=== PATIENT | female | born 1940 | race Native Hawaiian/Other Pacific Islander ===

== ENCOUNTER 2016-10-09 17:04 | Outpatient (CLI) | payer OTHER ==
[~2016-10-09 17:04] MED LIST: AMLO5TAB PO; ASA LOW DOSE81 MG OR; BENZONATATE200 MG PO; CETIRIZINE10 MG PO; CONZIP100 MG OR; ESTR0.6211 PO; FLUT0.05 NAS; GLIP10TA55 PO; HYZAAR1 TA1 PO; JANUMET1 TA1 PO; KLOR-CON M2020 MEQ OR; LEVAQUIN500 MG OR; LEVO0.0218 PO; LIPITOR20 MG PO; LYRICA50 MG OR; LYRICA75 MG OR; MECLIZINE25 MG PO; METO100T37 PO; MUCINEX600 MG OR; NEXIUM40 M1 PO; TRAZ50TA36 PO; TRAZODONE150 MG PO; TRICOR48 MG PO
[2016-10-09 18:00] LABS: POTASSIUM 4.9 mmol/L (3.6-5.2)
[2016-10-09 18:57] LABS: PLATELET COUNT 93 K/uL (152-353)
== END 2016-10-09 18:04 | disposition home or self-care (01) ==
LOC: LAB 17:04
PROVIDERS: Nurse Practitioner Family
DX: E11.9 Type 2 diabetes mellitus without complications (principal); I10 Essential (primary) hypertension; E03.8 Other specified hypothyroidism
CPT/HCPCS: 80053; 80061; 83036; 84439; 84443; 85027

== ENCOUNTER 2017-02-06 13:18 | Outpatient (CLI) | payer OTHER ==
[2017-02-06 14:29] LABS: PLATELET COUNT 141 K/uL (152-353)
[2017-02-06 15:25] LABS: POTASSIUM 5.2 mmol/L (3.6-5.2)
== END 2017-02-06 19:42 | disposition home or self-care (01) ==
LOC: LAB 13:18
PROVIDERS: Nurse Practitioner Family
DX: I10 Essential (primary) hypertension (principal); E11.9 Type 2 diabetes mellitus without complications
CPT/HCPCS: 80053; 80061; 82306; 82607; 83036; 84439; 84443; 85027

== ENCOUNTER 2021-11-16 12:32 | Outpatient (CLI) | payer OTHER | END 2021-11-16 19:57 | disposition home or self-care (01) | LOC: LAB 12:32 | PROVIDERS: ATTEND Nurse Practitioner Family | DX: N39.0 Urinary tract infection, site not specified (principal) | CPT/HCPCS: 81000 ==

== ENCOUNTER 2022-01-30 08:23 | Outpatient (CLI) | payer OTHER ==
[2022-01-30 09:01] LABS: PLATELET COUNT 79 K/uL (152-353)
== END 2022-01-30 18:48 | disposition home or self-care (01) ==
LOC: LABW 08:23
PROVIDERS: ATTEND Nurse Practitioner Family
DX: I10 Essential (primary) hypertension (principal); G25.81 Restless legs syndrome; E11.9 Type 2 diabetes mellitus without complications; E55.9 Vitamin D deficiency, unspecified; D64.89 Other specified anemias; K74.60 Unspecified cirrhosis of liver; C22.0 Liver cell carcinoma; R82.998 Other abnormal findings in urine
CPT/HCPCS: 36415; 80053; 80061; 81000; 82043; 82570; 82607; 83036; 83735; 84443; 85027; 87077; 87086; 87088; 87186

== ENCOUNTER 2022-03-04 14:42 | Emergency (ER) | payer OTHER ==
[~2022-03-04] VITALS: Ht 152.4 cm; Wt 58.5 kg
[2022-03-04 15:31] LABS: PLATELET COUNT 49 K/uL (152-353)
[2022-03-04 15:39] LABS: POTASSIUM 5.1 mmol/L (3.6-5.2)
[2022-03-04 17:20] VITALS: BP 125/40; TEMP 97.7
== END 2022-03-04 17:21 | disposition home or self-care (01) ==
LOC: ED 14:42
PROVIDERS: Emergency Medicine Emergency Medical Services
DX: N39.0 Urinary tract infection, site not specified (principal)
CPT/HCPCS: 36415; 80053; 81002; 81015; 83735; 84484; 85027; 87086; 87088; 93005; 96360; 96365; 99284; J0696

== ENCOUNTER 2022-05-01 08:26 | Outpatient (CLI) | payer OTHER ==
[2022-05-01 09:21] LABS: PLATELET COUNT 60 K/uL (152-353)
[2022-05-01 09:50] LABS: POTASSIUM 3.9 mmol/L (3.6-5.2)
== END 2022-05-01 19:05 | disposition home or self-care (01) ==
LOC: LABW 08:26 → MAMMO 08:30 → LABW 19:05
PROVIDERS: ATTEND Nurse Practitioner Family
DX: Z12.31 Encounter for screening mammogram for malignant neoplasm of breast (principal); I10 Essential (primary) hypertension; G25.81 Restless legs syndrome; E11.9 Type 2 diabetes mellitus without complications; E55.9 Vitamin D deficiency, unspecified; D64.89 Other specified anemias; K74.60 Unspecified cirrhosis of liver; C22.0 Liver cell carcinoma; Z79.899 Other long term (current) drug therapy
CPT/HCPCS: 36415; 80053; 80061; 81000; 82043; 82306; 82570; 82607; 82728; 82746; 83540; 83550; 84443; 85027; 87077; 87086; 87088; 87186

== ENCOUNTER 2022-05-22 15:07 | Outpatient (CLI) | payer OTHER ==
[2022-05-22 16:51] LABS: PLATELET COUNT 50 K/uL (152-353)
[2022-05-22 17:03] LABS: POTASSIUM 5.3 mmol/L (3.6-5.2)
== END 2022-05-22 23:26 | disposition home or self-care (01) ==
LOC: LABW 15:07
PROVIDERS: ATTEND Nurse Practitioner Family
DX: C22.0 Liver cell carcinoma (principal); D64.89 Other specified anemias; R79.89 Other specified abnormal findings of blood chemistry; R92.8 Other abnormal and inconclusive findings on diagnostic imaging of breast
CPT/HCPCS: 36415; 80053; 82105; 82525; 82607; 82668; 82728; 82746; 83540; 83550; 84439; 84443; 85027

== ENCOUNTER 2022-05-27 07:57 | Outpatient (CLI) | payer OTHER | END 2022-05-27 20:37 | disposition home or self-care (01) | LOC: CT 07:57 | PROVIDERS: ATTEND Internal Medicine Hematology & Oncology | DX: C22.0 Liver cell carcinoma (principal) | CPT/HCPCS: 36415; 82565; 84520 ==

== ENCOUNTER 2022-06-24 08:00 | Outpatient (CLI) | payer OTHER ==
[2022-06-24 08:43] LABS: PLATELET COUNT 54 K/uL (152-353)
[2022-06-24 09:29] LABS: POTASSIUM 4.5 mmol/L (3.6-5.2)
== END 2022-06-24 19:31 | disposition home or self-care (01) ==
LOC: LABW 08:00
PROVIDERS: ATTEND Internal Medicine
DX: D50.8 Other iron deficiency anemias (principal); N18.4 Chronic kidney disease, stage 4 (severe); D63.1 Anemia in chronic kidney disease; E11.22 Type 2 diabetes mellitus with diabetic chronic kidney disease; R53.83 Other fatigue
CPT/HCPCS: 36415; 80053; 81002; 82272; 82306; 82330; 82570; 82607; 82728; 82746; 83036; 83540; 83550; 83735; 83970; 84100; 84156; 84439; 84443; 85027; 85652; 86038

== ENCOUNTER 2022-07-01 13:05 | Outpatient (CLI) | payer OTHER | END 2022-07-01 19:42 | disposition home or self-care (01) | LOC: LAB 13:05 | PROVIDERS: ATTEND Nurse Practitioner Family | DX: D50.8 Other iron deficiency anemias (principal) | CPT/HCPCS: 82272 ==

== ENCOUNTER 2022-07-02 16:33 | Outpatient (CLI) | payer OTHER | END 2022-07-02 19:18 | disposition home or self-care (01) | LOC: LAB 16:33 | PROVIDERS: ATTEND Nurse Practitioner Family | DX: D50.8 Other iron deficiency anemias (principal) | CPT/HCPCS: 82272 ==

== ENCOUNTER 2022-07-08 11:36 | Outpatient (CLI) | payer OTHER ==
[2022-07-08 12:00] LABS: PLATELET COUNT 44 K/uL (152-353)
[2022-07-08 12:24] LABS: POTASSIUM 5.1 mmol/L (3.6-5.2)
== END 2022-07-08 20:01 | disposition home or self-care (01) ==
LOC: LABW 11:36
PROVIDERS: ATTEND Nurse Practitioner Family
DX: Z08 Encounter for follow-up examination after completed treatment for malignant neoplasm (principal); Z85.05 Personal history of malignant neoplasm of liver; D61.818 Other pancytopenia; D50.8 Other iron deficiency anemias
CPT/HCPCS: 36415; 80053; 82105; 82607; 82728; 82746; 83540; 83550; 83615; 85027

== ENCOUNTER 2022-08-13 11:15 | Outpatient (CLI) | payer OTHER ==
[2022-08-13 11:52] LABS: PLATELET COUNT 50 K/uL (152-353)
[2022-08-13 12:20] LABS: POTASSIUM 4.4 mmol/L (3.6-5.2)
== END 2022-08-13 19:03 | disposition home or self-care (01) ==
LOC: LABW 11:15
PROVIDERS: ATTEND Nurse Practitioner Family
DX: D61.818 Other pancytopenia (principal); Z85.05 Personal history of malignant neoplasm of liver; Z08 Encounter for follow-up examination after completed treatment for malignant neoplasm; D50.8 Other iron deficiency anemias
CPT/HCPCS: 36415; 80053; 82105; 82607; 82728; 82746; 83540; 83550; 83615; 85027

== ENCOUNTER 2022-10-12 19:24 | Emergency (ER) | payer OTHER ==
[~2022-10-12] VITALS: Ht 165.1 cm; Wt 57.6 kg
[2022-10-12] MEDS ORDERED: TRAMADOL HYDROC50 MG PO (19:52)
[2022-10-12] MEDS ORDERED: EUTHYROX75 MCG PO (19:53)
[2022-10-12] MEDS ORDERED: PANTOPRAZOLE SO40 M1 PO (19:54)
[2022-10-12] MEDS ORDERED: LOSA50TA PO (19:54)
[2022-10-12] MEDS ORDERED: GLIP10TA55 PO (19:58)
[2022-10-12 20:36] LABS: PLATELET COUNT 78 K/uL (152-353)
[2022-10-12 20:46] LABS: POTASSIUM 3.2 mmol/L (3.6-5.2)
[2022-10-12 23:38] VITALS: BP 148/59; TEMP 97.7
== END 2022-10-12 23:38 | disposition home or self-care (01) ==
LOC: ED 19:24
PROVIDERS: Family Medicine
DX: E11.649 Type 2 diabetes mellitus with hypoglycemia without coma (principal); Z79.84 Long term (current) use of oral hypoglycemic drugs; S32.018A Other fracture of first lumbar vertebra, initial encounter for closed fracture; E87.6 Hypokalemia; G93.89 Other specified disorders of brain; W01.198A Fall on same level from slipping, tripping and stumbling with subsequent striking against other object, initial encounter; Y92.098 Other place in other non-institutional residence as the place of occurrence of the external cause
CPT/HCPCS: 80053; 82550; 84484; 85027; 96374; 99284; J1885

== ENCOUNTER 2022-10-14 10:17 | Outpatient (CLI) | payer OTHER ==
[~2022-10-14 10:17] MED LIST changes: +EUTHYROX75 MCG PO; +LOSA50TA PO; +PANTOPRAZOLE SO40 M1 PO; +TRAMADOL HYDROC50 MG PO
[2022-10-14 10:54] LABS: PLATELET COUNT 59 K/uL (152-353)
[2022-10-14 11:39] LABS: POTASSIUM 4.4 mmol/L (3.6-5.2)
== END 2022-10-14 21:46 | disposition home or self-care (01) ==
LOC: LABW 10:17
PROVIDERS: ATTEND Internal Medicine
DX: N18.4 Chronic kidney disease, stage 4 (severe) (principal); E11.22 Type 2 diabetes mellitus with diabetic chronic kidney disease; D63.1 Anemia in chronic kidney disease; R53.83 Other fatigue; Z85.05 Personal history of malignant neoplasm of liver; D61.818 Other pancytopenia
CPT/HCPCS: 36415; 80053; 81000; 82306; 82330; 82570; 82607; 82728; 82746; 83036; 83540; 83550; 83615; 83735; 83970; 84100; 84156; 84439; 84443; 85027; 85652; 86038; 87077; 87086; 87088; 87186

== ENCOUNTER 2022-10-18 12:24 | Outpatient (CLI) | payer OTHER | END 2022-10-18 18:57 | disposition home or self-care (01) | LOC: MRI 12:24 | PROVIDERS: ATTEND Physician Assistant | DX: R55 Syncope and collapse (principal); R41.0 Disorientation, unspecified ==

== ENCOUNTER 2023-10-08 07:05 | Emergency (ER) | payer OTHER ==
[~2023-10-08] VITALS: Ht 165.1 cm; Wt 54.9 kg
[2023-10-08 07:35] LABS: PLATELET COUNT 65 K/uL (152-353); POTASSIUM 4.2 mmol/L (3.6-5.2)
[2023-10-08] MEDS ORDERED: CEFTRIAXONE SODIUM 1,000 MG in SOD. CHLORIDE 0.9% 50 ML IVPB ONE (09:47)
[2023-10-08] MEDS ORDERED: SODIUM CHLORIDE 0.9% 50 ML IV ONE (10:05)
[2023-10-08] MEDS ORDERED: CEFTRIAXONE SODIUM 1,000 MG IV ONE (10:05)
[2023-10-08 10:10] LABS: PARTIAL THROMBOPLASTIN TIME 40.3 SECONDS (23.9-36.7)
[2023-10-08 11:05] VITALS: BP 105/44; TEMP 98.5
== END 2023-10-08 11:05 | disposition short-term general hospital (02) ==
LOC: ED 07:05
PROVIDERS: Internal Medicine Endocrinology, Diabetes & Metabolism
DX: R10.9 Unspecified abdominal pain (principal); R18.8 Other ascites; N17.8 Other acute kidney failure; N18.9 Chronic kidney disease, unspecified; N39.0 Urinary tract infection, site not specified
CPT/HCPCS: 80053; 81000; 82140; 83690; 84484; 85027; 85610; 85730; 87077; 87086; 87088; 87186; 93005; 96365; 99285; J0696